=== PATIENT | female | born 1970 | race Two or more races ===

== ENCOUNTER 2022-11-18 12:44 | Emergency (ER) | payer OTHER ==
[2022-11-18] MEDS ORDERED: ACETAMINOPHEN 1000 MG/100 ML BAG IVPB ONE (12:59)
[2022-11-18] MEDS ORDERED: morphine CARPU-JECT 4 MG/1 ML DISP.SYRIN IVPUSH ONE ×2 (12:59→15:13)
[2022-11-18 13:01] VITALS: BMI 32.2
[2022-11-18] MEDS ORDERED: morphine SULFATE 4 MG/ML VIAL ONE ×2 (13:07→15:19)
[2022-11-18] MEDS ORDERED: ACETAMINOPHEN INJECTION 100 ML IVPB ONE (13:07)
[2022-11-18] MEDS ORDERED: SODIUM CHLORIDE 0.9% 500 ML INFUS.BAG IV ONE (13:41)
[2022-11-18 13:49] LABS: HEMATOCRIT 40.9 % (32.4-45.2); HEMOGLOBIN 13.4 G/dL (10.7-15.3); MCH 27.9 pg (25.7-33.7); MCHC 32.8 g/dl (32.0-36.0); MEAN PLT VOLUME 7.6 fl (7.5-11.1); PLATELET COUNT 326.7 10^3/uL (134-434); RBC 4.81 10^6/uL (3.60-5.2); RDW 15.5 % (11.6-15.6); WHITE BLOOD COUNT 6.8 10^3/uL (4.0-10.8)
[2022-11-18 13:52] LABS: INR 0.97 (0.83-1.09); PROTHROMBIN TIME (PATIENT) 11.3 SEC (9.7-13.0)
[2022-11-18 13:54] LABS: ACTIVATED PTT 27.1 SECONDS (25.2-36.5)
[2022-11-18 14:04] LABS: ALBUMIN 4.2 g/dl (3.4-5.0); BLOOD UREA NITROGEN 11.5 mg/dl (7-18); CALCIUM 9.4 mg/dl (8.5-10.1); CREATININE 0.8 mg/dl (0.6-1.3); POTASSIUM 4.2 mmol/L (3.5-5.1); SGOT/AST 13.4 U/L (15-37); SGPT/ALT 6.8 U/L (7-52); TOT PROT 7.6 g/dl (6.4-8.2)
[2022-11-18 14:55] LABS: PLATELET ESTIMATE ADEQUATE
[2022-11-18 15:02] LABS: BILIRUBIN,TOTAL 0.4 mg/dL (0.2-1)
[2022-11-18] MEDS ORDERED: KETOROLAC TROMETHAMINE 15 MG/ML VIAL IVPUSH ONE (16:14)
[2022-11-18] MEDS ORDERED: KETOROLAC TROMETHAMINE 15 MG/ML VIAL ONE (16:35)
[2022-11-18 16:38] VITALS: BP 136/82; PULSE 81; RESP 18; TEMP 98.8
== END 2022-11-18 17:23 | disposition home or self-care (01) ==
LOC: FER 12:44
PROC: 3E033NZ Introduction of Analgesics, Hypnotics, Sedatives into Peripheral Vein, Percutaneous Approach (ICD-10-PCS; principal; 2022-11-18)
PROC: 3E0333Z Introduction of Anti-inflammatory into Peripheral Vein, Percutaneous Approach (ICD-10-PCS; 2022-11-18)
PROC: 3E033GC Introduction of Other Therapeutic Substance into Peripheral Vein, Percutaneous Approach (ICD-10-PCS; 2022-11-18)
PROC: 3E033GC Introduction of Other Therapeutic Substance into Peripheral Vein, Percutaneous Approach (ICD-10-PCS; 2022-11-18)
DX: R10.9 Unspecified abdominal pain (principal); M54.50 Low back pain, unspecified; R26.9 Unspecified abnormalities of gait and mobility; D25.9 Leiomyoma of uterus, unspecified; M79.605 Pain in left leg; R53.1 Weakness; M47.816 Spondylosis without myelopathy or radiculopathy, lumbar region
CPT/HCPCS: 36415; 71045-TC-FY; 71275-TC; 72131-TC; 74174-TC; 80053; 81003; 81015; 84484; 85025; 85610; 85730; 86850; 86900; 86901; 87086; 93005; 99285-25; Q9967

== ENCOUNTER 2022-12-27 13:01 | Emergency (ER) | payer OTHER ==
[2022-12-27 13:47] VITALS: BP 142/91; PULSE 75; RESP 18; TEMP 97.9; BMI 32.2
[2022-12-27] MEDS ORDERED: KETOROLAC TROMETHAMINE 30 MG/1 ML VIAL IM ONE (14:18)
[2022-12-27] MEDS ORDERED: METHOCARBAMOL 500 MG TABLET PO ONE (14:18)
[2022-12-27] MEDS ORDERED: LIDOCAINE 5% TOPICAL PATCH TP ONE (14:18)
[2022-12-27] MEDS ORDERED: KETOROLAC TROMETHAMINE 30 MG/1 ML VIAL ONE (14:23)
[2022-12-27] MEDS ORDERED: METHOCARBAMOL 500 MG TABLET ONE (14:23)
[2022-12-27] MEDS ORDERED: LIDOCAINE 5% TOPICAL PATCH ONE (14:23)
[2022-12-27] MEDS ORDERED: LIDOCAINE PATCH REMOVAL MC ONE (22:00)
== END 2022-12-27 15:30 | disposition home or self-care (01) ==
LOC: FER 13:01
PROC: 3E0233Z Introduction of Anti-inflammatory into Muscle, Percutaneous Approach (ICD-10-PCS; principal; 2022-12-27)
DX: M54.50 Low back pain, unspecified (principal)
CPT/HCPCS: 99284-25